=== PATIENT | male | born 1960 | race Caucasian/White ===

== ENCOUNTER 2016-09-23 16:05 | Inpatient (IN) | payer OTHER ==
[2016-09-23] MEDS ORDERED: SODIUM CHLORIDE 0.9% 1,000 ML IV STA (17:31)
[2016-09-23] MEDS ORDERED: HYDROmorphone 1 MG/ML 1 ML SYRINGE IVP STA ×2 (17:31→19:22)
[2016-09-23] MEDS ORDERED: RX INFO: IV CONTRAST WAS GIVEN 1 EACH MISC MISCELLANE PRN ×2 (17:31→18:23)
--- NOTE | 2016-09-23 17:46 | ED ---
General Adult HPI <Bernardo Reyes - Last Filed: 09/23/16 19:35> - General Source: patient, RN notes reviewed Mode of arrival: ambulatory Limitations: no limitations <Tayler Sharp - Last Filed: 09/23/16 19:50> - General Chief complaint: Skin/Abscess/Foreign Body Stated complaint: Abscess on Groin Time Seen by Provider: 09/23/16 17:19 - History of Present Illness Initial comments: 55 yo male presents to the ER with cc of abscess to his bottom area. Patient states that he's noticed pain about 3 days ago. Patient states she noticed some drainage today he went to [facility] and was referred here. Patient denies any fever chills any history of anything like this in the past. Patient denies any falls traumas or injuries. Patient states that he was concerned due to the worsening pains without that he should be evaluated. Patient denies any recent fever, chills, shortness of breath, chest pain, back pain, abdominal pain , nausea vomiting, numbness or tingling, dysuria or hematuria, constipation or diarrhea, headaches or visual changes, or any other current symptoms. (Tayler Sharp) - Related Data Home Medications Medication Instructions Recorded Confirmed Acetaminophen Tab [Tylenol Tab] 325 - 650 mg PO Q6H PRN 09/23/16 09/23/16 Losartan/Hydrochlorothiazide 1 tab PO DAILY 09/23/16 09/23/16 [Losartan-Hctz 100-12.5 mg Tab] Allergies Allergy/AdvReac Type Severity Reaction Status Date / Time No Known Allergies Allergy Verified 09/23/16 17:11 Review of Systems ROS Other: All systems not noted in ROS Statement are negative. <Bernardo Reyes - Last Filed: 09/23/16 19:35> ROS Other: All systems not noted in ROS Statement are negative. <Tayler Sharp - Last Filed: 09/23/16 19:50> ROS Statement: Those systems with pertinent positive or pertinent negative responses have been documented in the HPI. Past Medical History Past Medical History: Hypertension History of Any Multi-Drug Resistant Organisms: None Reported Past Surgical History: Back Surgery, Cholecystectomy Past Psychological History: No Psychological Hx Reported Smoking Status: Current every day smoker Past Alcohol Use History: Occasional Past Drug Use History: None Reported <Tayler Sharp - Last Filed: 09/23/16 19:50> General Exam <Bernardo Reyes - Last Filed: 09/23/16 19:35> Limitations: no limitations <Tayler Sharp - Last Filed: 09/23/16 19:50> - General Exam Comments Initial Comments: General: The patient is awake and alert, in no distress, and does not appear acutely ill. Eye: Pupils are equal, round and reactive to light, extra-ocular movements are intact; there is normal conjunctiva bilaterally. No signs of icterus. Ears, nose, mouth and throat: There are moist mucous membranes and no oral lesions. Neck: The neck is supple, there is no tenderness. Cardiovascular: There is a regular rate and rhythm. No murmur, rub or gallop is appreciated. Respiratory: Lungs are clear to auscultation, respirations are non-labored, breath sounds are equal. No wheezes, stridor, rales, or rhonchi. Gastrointestinal: Soft, non-distended, non-tender abdomen without masses or organomegaly noted. There is no rebound or guarding present. No CVA tenderness. Bowel sounds are unremarkable. Back: There is no tenderness to palpation in the midline. There is no obvious deformity. No rashes noted. Musculoskeletal: Normal ROM, no tenderness, There is no pedal edema. There is no calf tenderness or swelling. Sensation intact. Pulses equal bilaterally 2+. Neurological: CN II-XII intact, There are no obvious motor or sensory deficits. Coordination appears grossly intact. Speech is normal. Skin: Skin is warm and dry. Patient appears to have a large erythematous abscess area in the perineum area that does extend into the rectal area and underneath the scrotum. It is fluctuant to touch Psychiatric: Cooperative, appropriate mood & affect, normal judgment. (Tayler Sharp) Course <Bernardo Reyes - Last Filed: 09/23/16 19:35> <Tayler Sharp - Last Filed: 09/23/16 19:50> Vital Signs 09/23/16 09/23/16 16:21 19:19 Temperature 100.6 F H 99.2 F Pulse Rate 76 78 Respiratory 18 16 Rate Blood Pressure 140/69 132/60 O2 Sat by Pulse 98 98 Oximetry - Reevaluation(s) Reevaluation #1: 09/23/16 19:48 This time patient does meet criteria for sepsis. (Tayler Sharp) Medical Decision Making - Lab Data Result diagrams: 09/23/16 17:55 09/23/16 17:55 <Bernardo Reyes - Last Filed: 09/23/16 19:35> - Lab Data Result diagrams: 09/23/16 17:55 09/23/16 17:55 - Radiology Data Radiology results: report reviewed, image reviewed <Tayler Sharp - Last Filed: 09/23/16 19:50> - Medical Decision Making I examined the patient he has a large perineal abscesses at the base of the scrotum. CAT scan showed a 9 x 4 cm complex mass inferior to the posterior urethra and anterior to the anus consistent with perineum abscess. The patient' s white count 22,000, temperature is 100.5. This been ongoing for 3 days. The patient reports having had a similar smaller abscess 3 years ago it drained spontaneously without any treatment. He does report that he thinks this abscess started to drain and there was approximately 2 cups foul-smelling pus came out while at home. The case discussed with on-call urologist Dr. Kenney. He'll see the patient in emergency room. The patient be kept nothing by mouth at this time and started on IV antibiotics.Dr. Reyes case discussion discussed with Dr. Asencio on-call for the patient's attending. She recommends Zosyn and consultation from infectious disease, Dr. Fitch. (Bernardo Reyes) 55-year-old male presents to the emergency department with chief complaint perineal abscess that does appear to extend into the rectal area. Patient did develop a low-grade fever here. At this time the patient CT and lab work is reviewed. We will admit the patient at this time. Patient was given Unasyn started on Vanco here in the emergency department. After talking to Dr. Asencio she would like us to start Zosyn. We did change the antibiotic to Zosyn for the next round. At this time patient will be admitted. (Tayler Sharp) - Lab Data Lab Results 09/23/16 09/23/16 09/23/16 Range/Units 17:55 17:55 17:55 WBC 22.5 H (3.8-10.6) k/uL RBC 4.77 (4.30-5.90) m/uL Hgb 15.4 (13.0-17.5) gm/dL Hct 44.9 (39.0-53.0) % MCV 94.3 (80.0-100.0) fL MCH 32.3 (25.0-35.0) pg MCHC 34.3 (31.0-37.0) g/dL RDW 13.7 (11.5-15.5) % Plt Count 276 (150-450) k/uL Neutrophils % 85 % Lymphocytes % 6 % Monocytes % 6 % Eosinophils % 1 % Basophils % 0 % Neutrophils # 19.2 H (1.3-7.7) k/uL Lymphocytes # 1.4 (1.0-4.8) k/uL Monocytes # 1.4 H (0-1.0) k/uL Eosinophils # 0.1 (0-0.7) k/uL Basophils # 0.1 (0-0.2) k/uL Sodium 137 (137-145) mmol/L Potassium 3.9 (3.5-5.1) mmol/L Chloride 101 (98-107) mmol/L Carbon Dioxide 23 (22-30) mmol/L Anion Gap 13 mmol/L BUN 9 (9-20) mg/dL Creatinine 0.80 (0.66-1.25) mg/dL Est GFR (MDRD) Af Amer >60 (>60 ml/min/1.73 sqM) Est GFR (MDRD) Non-Af >60 (>60 ml/min/1.73 sqM) Glucose 85 (74-99) mg/dL Plasma Lactic Acid Samuel 1.6 (0.7-2.0) mmol/L Calcium 9.6 (8.4-10.2) mg/dL Total Bilirubin 1.2 (0.2-1.3) mg/dL AST 31 (17-59) U/L ALT 49 (21-72) U/L Alkaline Phosphatase 92 (38-126) U/L Total Protein 7.1 (6.3-8.2) g/dL Albumin 4.4 (3.5-5.0) g/dL Urine Color Urine Appearance (Clear) Urine pH (5.0-8.0) Ur Specific Waterflow (1.001-1.035) Urine Protein (Negative) Urine Glucose (UA) (Negative) Urine Ketones (Negative) Urine Blood (Negative) Urine Nitrite (Negative) Urine Bilirubin (Negative) Urine Urobilinogen (<2.0) mg/dL Ur Leukocyte Esterase (Negative) Urine RBC (0-5) /hpf Urine WBC (0-5) /hpf 09/23/16 Range/Units 18:06 WBC (3.8-10.6) k/uL RBC (4.30-5.90) m/uL Hgb (13.0-17.5) gm/dL Hct (39.0-53.0) % MCV (80.0-100.0) fL MCH (25.0-35.0) pg MCHC (31.0-37.0) g/dL RDW (11.5-15.5) % Plt Count (150-450) k/uL Neutrophils % % Lymphocytes % % Monocytes % % Eosinophils % % Basophils % % Neutrophils # (1.3-7.7) k/uL Lymphocytes # (1.0-4.8) k/uL Monocytes # (0-1.0) k/uL Eosinophils # (0-0.7) k/uL Basophils # (0-0.2) k/uL Sodium (137-145) mmol/L Potassium (3.5-5.1) mmol/L Chloride (98-107) mmol/L Carbon Dioxide (22-30) mmol/L Anion Gap mmol/L BUN (9-20) mg/dL Creatinine (0.66-1.25) mg/dL Est GFR (MDRD) Af Amer (>60 ml/min/1.73 sqM) Est GFR (MDRD) Non-Af (>60 ml/min/1.73 sqM) Glucose (74-99) mg/dL Plasma Lactic Acid Samuel (0.7-2.0) mmol/L Calcium (8.4-10.2) mg/dL Total Bilirubin (0.2-1.3) mg/dL AST (17-59) U/L ALT (21-72) U/L Alkaline Phosphatase (38-126) U/L Total Protein (6.3-8.2) g/dL Albumin (3.5-5.0) g/dL Urine Color Yellow Urine Appearance Clear (Clear) Urine pH 6.5 (5.0-8.0) Ur Specific Waterflow 1.009 (1.001-1.035) Urine Protein Negative (Negative) Urine Glucose (UA) Negative (Negative) Urine Ketones 1+ H (Negative) Urine Blood Trace H (Negative) Urine Nitrite Negative (Negative) Urine Bilirubin Negative (Negative) Urine Urobilinogen 2.0 (<2.0) mg/dL Ur Leukocyte Esterase Negative (Negative) Urine RBC 2 (0-5) /hpf Urine WBC 1 (0-5) /hpf Disposition <Bernardo Reyes - Last Filed: 09/23/16 19:35> Time of Disposition: 19:49 Decision Date: 09/23/16 Decision Time: 19:50 <Tayler Sharp - Last Filed: 09/23/16 19:50> Clinical Impression: Sepsis, Abscess of perineum Disposition: ADMITTED IP TO THIS HOSP Condition: Stable Referrals: Omkar Carmen MD [Primary Care Provider] - 1-2 days
[2016-09-23 18:11] LABS: Basophils # (A) 0.1 k/uL (0-0.2); Basophils % (A) 0 %; CH 32.7; CHCM 34.8; Eosinophils # (A) 0.1 k/uL (0-0.7); Eosinophils % (A) 1 %; HCT 44.9 % (39.0-53.0); HGB 15.4 gm/dL (13.0-17.5); Luc # (Auto) 0.33; Luc % (Auto) 2; Lymphocytes # (A) 1.4 k/uL (1.0-4.8); Lymphocytes % (A) 6 %; MCH 32.3 pg (25.0-35.0); MCHC 34.3 g/dL (31.0-37.0); MCV 94.3 fL (80.0-100.0); Mean Platelet Volume 7.7; Monocytes # (A) 1.4 k/uL (0-1.0); Monocytes % (A) 6 %; Neutrophils # (A) 19.2 k/uL (1.3-7.7); Neutrophils % (A) 85 %; RBC 4.77 m/uL (4.30-5.90); RDW 13.7 % (11.5-15.5); WBC 22.5 k/uL (3.8-10.6); WBC (Perox) 21.41
[2016-09-23 18:19] LABS: ALT 49 U/L (21-72); AST 31 U/L (17-59); Alkaline Phosphatase 92 U/L (38-126); Anion Gap 13 mmol/L; Blood Urea Nitrogen 9 mg/dL (9-20); Calcium 9.6 mg/dL (8.4-10.2); Carbon Dioxide 23 mmol/L (22-30); Chloride 101 mmol/L (98-107); Glucose 85 mg/dL (74-99); Non-African American GFR(MDRD) >60 (>60 ml/min/1.73 sqM); Potassium 3.9 mmol/L (3.5-5.1); Sodium 137 mmol/L (137-145); Total Bilirubin 1.2 mg/dL (0.2-1.3); Total Protein 7.1 g/dL (6.3-8.2)
[2016-09-23 18:21] LABS: Appearance,Urine Clear (Clear); Bilirubin,Urine Negative (Negative); Glucose,Urine (UA) Negative (Negative); Ketones,Urine 1+ (Negative); Leukocyte Esterase,Urine Negative (Negative); Nitrite,Urine Negative (Negative); PH, Urine 6.5 (5.0-8.0); Particle Count 552; Protein,Urine Negative (Negative); RBC,Urine 2 /hpf (0-5); Specific Gravity,Urine 1.009 (1.001-1.035); UA Billing (MACRO vs. MICRO) MICRO; WBC,Urine 1 /hpf (0-5)
--- NOTE | 2016-09-23 19:21 | CT ---
EXAMINATION TYPE: CT abdomen pelvis w con DATE OF EXAM: 09/23/2016 COMPARISON: NONE HISTORY: Pt states of abscess to groin area. CT DLP: 709.1 mGycm Automated exposure control for dose reduction was used. TECHNIQUE: Helical acquisition of images was performed from the lung bases through the pelvis. CONTRAST: Performed without Oral Contrast and with IV Contrast, patient injected with 100 mL of Omnipaque 300. FINDINGS: Lung bases are clear. There is no pleural effusion. Heart size is normal. Liver spleen pancreas appear normal. There are clips from cholecystectomy. Bile ducts are not dilated . There is no adrenal mass. Kidneys show satisfactory contrast opacification. There is no hydronephrosi s. There is a 1 cm cortical cyst on the medial left kidney. Ureters are not dilated. There is no retr operitoneal adenopathy. There is no ascites. Appendix appears normal. I see no intestinal wall thickening. There are no dilat ed loops. I see no bony destructive process. Bladder distends smoothly. There is no pelvic mass. There is no si gn of a hernia. There is no sign of an inguinal mass. There is no sign of a scrotal mass. There is a mixed density mass posterior to the scrotum and anterior to the anus in the subcutaneous tissues. Thi s measures 9 x 4 cm and contains some air and is consistent with an inflammatory mass and abscess. IMPRESSION: THERE IS A 9 X 4 CM COMPLEX MASS INFERIOR TO THE POSTERIOR URETHRA AND ANTERIOR TO THE ANUS CONSISTEN T WITH perineum abscess.
[2016-09-23] MEDS ORDERED: AMPICILLIN-SULBACTAM 3 GM in SODIUM CHLORIDE 0.9% 100 ML IVPB STA (19:22)
[2016-09-23] MEDS ORDERED: IV VANCOMYCIN PER PHARMACY 1 EACH MISC MISCELLANE PRN (19:22)
[2016-09-23] MEDS ORDERED: VANCOMYCIN 1,500 MG in SODIUM CHLORIDE 0.9% 250 ML IVPB STA (19:33)
[2016-09-23] MEDS ORDERED: ONDANSETRON 4 MG/2 ML VIAL IVP PRN (19:45)
[2016-09-23] MEDS ORDERED: NALOXONE 0.4 MG/ML 1 ML VIAL IV PRN (19:45)
[2016-09-23] MEDS ORDERED: ACETAMINOPHEN TAB 325 MG TAB PO PRN (19:47)
[2016-09-23] MEDS: HYDROmorphone 1 MG/ML 1 ML SYRINGE IV PRN (21:17)
--- NOTE | 2016-09-23 21:49 | P.GSCN ---
History of Present Illness Consult date: 09/23/16 Reason for Consult: Perineal abcess History of present illness: The patient is a 55-year-old male admitted through the emergency room for evaluation of a perineal abscess. He says that he first noted swelling anterior to the anus and posterior to the scrotum 3 days ago. He said that he had a similar problem 2 years ago which was felt to be a "boil" that spontaneously drained. Unfortunately this time the swelling worsened and became more uncomfortable. Today the patient noted some nausea as well as a fever and chills. He said that he began spontaneously draining from the perineum and estimates that he had nearly 2 cups of yellowish-bloody fluid that drained. He went to an urgent care clinic where he was initially evaluated and then sent to the emergency room for further evaluation. He was noted to have a temperature of 100.6. White blood count was 22,500. Lactic acid was 1.6. Computed tomography scan of the abdomen and pelvis with IV contrast appeared to show an abscess anterior to the anus and posterior to the scrotum and bulbous urethra. The patient has had no dysuria or difficulty voiding. He has no history of urinary tract infection. He said he last had a bowel movement yesterday. Review of Systems - Constitutional Reports anorexia, Reports chills, Reports fever - Cardiovascular Reports high blood pressure, Denies chest pain, Denies palpitations, Denies shortness of breath - Respiratory Denies cough, Denies wheezing - Gastrointestinal Denies abdominal pain, Denies constipation, Denies vomiting - Genitourinary Reports as per HPI, Denies testicular pain Past Medical History Past Medical History: Hypertension History of Any Multi-Drug Resistant Organisms: None Reported Past Surgical History: Back Surgery, Cholecystectomy Past Psychological History: No Psychological Hx Reported Smoking Status: Current every day smoker (Currently smokes 1 pack per day and has smoked for 40 years. He says that he has quit smoking in the past twice and wants to quit again.) Past Alcohol Use History: Occasional Past Drug Use History: None Reported Medications and Allergies Home Medications Medication Instructions Recorded Confirmed Type Acetaminophen Tab [Tylenol Tab] 325 - 650 mg PO Q6H PRN 09/23/16 09/23/16 History Losartan/Hydrochlorothiazide 1 tab PO DAILY 09/23/16 09/23/16 History [Losartan-Hctz 100-12.5 mg Tab] Allergies Allergy/AdvReac Type Severity Reaction Status Date / Time No Known Allergies Allergy Verified 09/23/16 17:11 Surgical - Exam Vital Signs Temp Pulse Resp BP Pulse Ox 100.6 F H 76 18 140/69 98 09/23/16 16:21 09/23/16 16:21 09/23/16 16:21 09/23/16 16:21 09/23/16 16:21 - General well developed, well nourished, no distress - Eyes no icteric - Neck no no masses, no no lymphadectomy - Respiratory normal expansion, normal respiratory effort - Abdomen Abdomen: non tender, no organomegaly Hernia: none - Genitourinary normal penis with no external lesions, testicles non-tender, other (There is mild scrotal edema. There is no scrotal fluctuance or crepitance. Posterior to the scrotum and anterior to the rectum is a soft tissue mass measuring approximately 2.5 x 3.5 cm in size consistent with an abscess. There appears to be a small area that had drained which is approximately 1 cm from the anus.) - Rectum Rectum: normal sphincter tone Results - Labs 09/23/16 17:55 09/23/16 17:55 Abnormal Lab Results - Last 24 Hours (Table) 09/23/16 09/23/16 Range/Units 17:55 18:06 WBC 22.5 H (3.8-10.6) k/uL Neutrophils # 19.2 H (1.3-7.7) k/uL Monocytes # 1.4 H (0-1.0) k/uL Urine Ketones 1+ H (Negative) Urine Blood Trace H (Negative) Diabetes panel 09/23/16 Range/Units 17:55 Sodium 137 (137-145) mmol/L Potassium 3.9 (3.5-5.1) mmol/L Chloride 101 (98-107) mmol/L Carbon Dioxide 23 (22-30) mmol/L BUN 9 (9-20) mg/dL Creatinine 0.80 (0.66-1.25) mg/dL Glucose 85 (74-99) mg/dL Calcium 9.6 (8.4-10.2) mg/dL AST 31 (17-59) U/L ALT 49 (21-72) U/L Alkaline Phosphatase 92 (38-126) U/L Total Protein 7.1 (6.3-8.2) g/dL Albumin 4.4 (3.5-5.0) g/dL Calcium panel 09/23/16 Range/Units 17:55 Calcium 9.6 (8.4-10.2) mg/dL Albumin 4.4 (3.5-5.0) g/dL Pituitary panel 09/23/16 Range/Units 17:55 Sodium 137 (137-145) mmol/L Potassium 3.9 (3.5-5.1) mmol/L Chloride 101 (98-107) mmol/L Carbon Dioxide 23 (22-30) mmol/L BUN 9 (9-20) mg/dL Creatinine 0.80 (0.66-1.25) mg/dL Glucose 85 (74-99) mg/dL Calcium 9.6 (8.4-10.2) mg/dL Adrenal panel 09/23/16 Range/Units 17:55 Sodium 137 (137-145) mmol/L Potassium 3.9 (3.5-5.1) mmol/L Chloride 101 (98-107) mmol/L Carbon Dioxide 23 (22-30) mmol/L BUN 9 (9-20) mg/dL Creatinine 0.80 (0.66-1.25) mg/dL Glucose 85 (74-99) mg/dL Calcium 9.6 (8.4-10.2) mg/dL Total Bilirubin 1.2 (0.2-1.3) mg/dL AST 31 (17-59) U/L ALT 49 (21-72) U/L Alkaline Phosphatase 92 (38-126) U/L Total Protein 7.1 (6.3-8.2) g/dL Albumin 4.4 (3.5-5.0) g/dL Assessment and Plan (1) Abscess of perineum Narrative/Plan: The patient appears to have a large perineal abscess. It's unclear whether this was a cutaneous abscess that burrowed into the perineal area or a perianal abscess that extended anteriorly. This does not appear to be a scrotal or periurethral abscess. Status: Acute Plan: The patient is currently on Zosyn. It will most likely be necessary to further drain the abscess cavity even though a large amount of fluid has already drained. I believe the general surgical consultation should be obtained due to the possibility that this actually represents a perianal abscess.
[2016-09-23] MEDS: PIPERACILLIN-TAZOBACTAM 3.375 GM in DEXTROSE/WATER 1 50ML.BAG IVPB SCH (22:58)
[2016-09-23] MEDS: SODIUM CHLORIDE 0.9% 1,000 ML IV SCH (22:58)
[2016-09-23] MEDS: HYDROcodone/APAP 5-325MG 1 EACH TAB PO PRN (23:02)
[2016-09-24] MEDS: HYDROmorphone 1 MG/ML 1 ML SYRINGE IV PRN ×6 (03:16→19:51)
[2016-09-24] MEDS: HYDROcodone/APAP 5-325MG 1 EACH TAB PO PRN ×4 (05:29→23:02)
[2016-09-24] MEDS: VANCOMYCIN 1,250 MG in SODIUM CHLORIDE 0.9% 250 ML IVPB SCH ×3 (05:30→22:57)
[2016-09-24] MEDS: SODIUM CHLORIDE 0.9% 1,000 ML IV SCH ×2 (07:09→12:53)
[2016-09-24] MEDS: LOSARTAN 50 MG TAB PO SCH (07:40)
[2016-09-24] MEDS: HYDROCHLOROTHIAZIDE 12.5 MG CAP PO SCH (07:40)
[2016-09-24 07:50] LABS: Basophils # (A) 0.1 k/uL (0-0.2); Basophils % (A) 0 %; CH 32.2; CHCM 34.1; Eosinophils # (A) 0.2 k/uL (0-0.7); Eosinophils % (A) 1 %; HCT 40.2 % (39.0-53.0); HDW 2.65; HGB 13.5 gm/dL (13.0-17.5); Luc # (Auto) 0.32; Luc % (Auto) 2; Lymphocytes # (A) 1.7 k/uL (1.0-4.8); Lymphocytes % (A) 10 %; MCH 31.8 pg (25.0-35.0); MCHC 33.5 g/dL (31.0-37.0); MCV 94.9 fL (80.0-100.0); Mean Platelet Volume 7.7; Monocytes % (A) 6 %; Neutrophils # (A) 13.4 k/uL (1.3-7.7); Neutrophils % (A) 80 %; RBC 4.23 m/uL (4.30-5.90); RDW 13.4 % (11.5-15.5); WBC 16.7 k/uL (3.8-10.6); WBC (Perox) 16.29
[2016-09-24] MEDS: PIPERACILLIN-TAZOBACTAM 3.375 GM in DEXTROSE/WATER 1 50ML.BAG IVPB SCH ×2 (08:03→18:10)
[2016-09-24 08:09] LABS: ALT 47 U/L (21-72); AST 34 U/L (17-59); Alkaline Phosphatase 76 U/L (38-126); Anion Gap 6 mmol/L; Blood Urea Nitrogen 8 mg/dL (9-20); Calcium 8.3 mg/dL (8.4-10.2); Carbon Dioxide 23 mmol/L (22-30); Chloride 108 mmol/L (98-107); Glucose 79 mg/dL (74-99); Non-African American GFR(MDRD) >60 (>60 ml/min/1.73 sqM); Potassium 3.8 mmol/L (3.5-5.1); Sodium 137 mmol/L (137-145); Total Bilirubin 1.3 mg/dL (0.2-1.3); Total Protein 5.3 g/dL (6.3-8.2)
[2016-09-24] MEDS ORDERED: LIDOCAINE 1%-EPI 1:100,000 20 ML VIAL SQ STA (09:41)
[2016-09-24] MEDS ORDERED: LIDOCAINE 2%-EPI 1:100,000 20 ML VIAL SQ STA (09:49)
--- NOTE | 2016-09-24 11:07 | P.OP ---
Date of Procedure: 09/24/16 Preoperative Diagnosis: Perineal abscess Postoperative Diagnosis: Perineal abscess Procedure(s) Performed: Implants: Anesthesia: local Surgeon: Ben Kenney Pathology: none sent Indications for Procedure: Operative Findings: The patient was placed in the dorsal lithotomy position on his hospital bed. The perineal area was prepped with Betadine solution. 6 mL of 1% lidocaine with epinephrine was infiltrated into the midline over the abscess. A 1.5 cm incision was made over the abscess and approximately 30 mL of purulent material drained. A culture was obtained. The abscess cavity was irrigated with normal saline and packed with iodoform. Blood loss was minimal. Patient tolerated procedure well. Description of Procedure:
--- NOTE | 2016-09-24 11:09 | P.PN ---
Progress Note - Text The patient has a low-grade fever of approximately 99. He continues to have discomfort in the perineum with periodic drainage from a tiny opening. White blood count is lower at 17,000. This morning I performed an incision and drainage of the abscess cavity and the abscess cavity will be irrigated periodically with one quarter strength Betadine solution and packed with iodoform. The patient will be continued on his antibiotics. General surgical consultation will be obtained as it's unclear whether this was a perianal abscess or a perineal abscess.
--- NOTE | 2016-09-24 12:56 | P.GSCN ---
History of Present Illness Consult date: 09/24/16 Reason for Consult: Perineal abscess History of present illness: This a 55-year-old male who was admitted to the hospital with a perineal abscess. Patient underwent incision and drainage by Dr. Liu. Patient states he feels better today. He's had the abscess for approximately 3 or 4 days. He states he had a previous abscess bhesania several years ago. Past Medical History Past Medical History: Hypertension History of Any Multi-Drug Resistant Organisms: None Reported Past Surgical History: Back Surgery, Cholecystectomy Past Psychological History: No Psychological Hx Reported Smoking Status: Current every day smoker (Currently smokes 1 pack per day and has smoked for 40 years. He says that he has quit smoking in the past twice and wants to quit again.) Past Alcohol Use History: Occasional Past Drug Use History: None Reported - Past Family History Father Family Medical History: Coronary Artery Disease (CAD), Diabetes Mellitus Additional Family Medical History / Comment(s): dad passed from heart disease, hx of triple bypass. Mother Additional Family Medical History / Comment(s): mom has chrones and ostomy Medications and Allergies Home Medications Medication Instructions Recorded Confirmed Type Acetaminophen Tab [Tylenol Tab] 325 - 650 mg PO Q6H PRN 09/23/16 09/23/16 History Losartan/Hydrochlorothiazide 1 tab PO DAILY 09/23/16 09/23/16 History [Losartan-Hctz 100-12.5 mg Tab] Allergies Allergy/AdvReac Type Severity Reaction Status Date / Time No Known Allergies Allergy Verified 09/23/16 17:11 Surgical - Exam Vital Signs Temp Pulse Resp BP Pulse Ox 100.6 F H 76 18 140/69 98 09/23/16 16:21 09/23/16 16:21 09/23/16 16:21 09/23/16 16:21 09/23/16 16:21 - General well developed, no distress - Eyes PERRL - ENT normal pinna - Respiratory normal expansion - Cardiovascular Rhythm: regular - Abdomen Abdomen: soft, non tender - Genitourinary Once an incision over her perineum. Induration and swelling. Results - Labs 09/24/16 07:29 09/24/16 07:29 Abnormal Lab Results - Last 24 Hours (Table) 09/23/16 09/23/16 09/24/16 Range/Units 17:55 18:06 07:29 WBC 22.5 H 16.7 H (3.8-10.6) k/uL RBC 4.23 L (4.30-5.90) m/uL Neutrophils # 19.2 H 13.4 H (1.3-7.7) k/uL Monocytes # 1.4 H (0-1.0) k/uL Chloride (98-107) mmol/L BUN (9-20) mg/dL Calcium (8.4-10.2) mg/dL Total Protein (6.3-8.2) g/dL Albumin (3.5-5.0) g/dL Urine Ketones 1+ H (Negative) Urine Blood Trace H (Negative) 09/24/16 Range/Units 07:29 WBC (3.8-10.6) k/uL RBC (4.30-5.90) m/uL Neutrophils # (1.3-7.7) k/uL Monocytes # (0-1.0) k/uL Chloride 108 H (98-107) mmol/L BUN 8 L (9-20) mg/dL Calcium 8.3 L (8.4-10.2) mg/dL Total Protein 5.3 L (6.3-8.2) g/dL Albumin 3.0 L (3.5-5.0) g/dL Urine Ketones (Negative) Urine Blood (Negative) Microbiology - Last 24 Hours (Table) 09/23/16 19:50 Gram Stain - Preliminary Groin Wound Culture - Preliminary 09/23/16 18:06 Urine Culture - Preliminary Urine,Voided Diabetes panel 09/23/16 09/24/16 Range/Units 17:55 07:29 Sodium 137 137 (137-145) mmol/L Potassium 3.9 3.8 (3.5-5.1) mmol/L Chloride 101 108 H (98-107) mmol/L Carbon Dioxide 23 23 (22-30) mmol/L BUN 9 8 L (9-20) mg/dL Creatinine 0.80 0.77 (0.66-1.25) mg/dL Glucose 85 79 (74-99) mg/dL Calcium 9.6 8.3 L (8.4-10.2) mg/dL AST 31 34 (17-59) U/L ALT 49 47 (21-72) U/L Alkaline Phosphatase 92 76 (38-126) U/L Total Protein 7.1 5.3 L (6.3-8.2) g/dL Albumin 4.4 3.0 L (3.5-5.0) g/dL Calcium panel 09/23/16 09/24/16 Range/Units 17:55 07:29 Calcium 9.6 8.3 L (8.4-10.2) mg/dL Albumin 4.4 3.0 L (3.5-5.0) g/dL Pituitary panel 09/23/16 09/24/16 Range/Units 17:55 07:29 Sodium 137 137 (137-145) mmol/L Potassium 3.9 3.8 (3.5-5.1) mmol/L Chloride 101 108 H (98-107) mmol/L Carbon Dioxide 23 23 (22-30) mmol/L BUN 9 8 L (9-20) mg/dL Creatinine 0.80 0.77 (0.66-1.25) mg/dL Glucose 85 79 (74-99) mg/dL Calcium 9.6 8.3 L (8.4-10.2) mg/dL Adrenal panel 09/23/16 09/24/16 Range/Units 17:55 07:29 Sodium 137 137 (137-145) mmol/L Potassium 3.9 3.8 (3.5-5.1) mmol/L Chloride 101 108 H (98-107) mmol/L Carbon Dioxide 23 23 (22-30) mmol/L BUN 9 8 L (9-20) mg/dL Creatinine 0.80 0.77 (0.66-1.25) mg/dL Glucose 85 79 (74-99) mg/dL Calcium 9.6 8.3 L (8.4-10.2) mg/dL Total Bilirubin 1.2 1.3 (0.2-1.3) mg/dL AST 31 34 (17-59) U/L ALT 49 47 (21-72) U/L Alkaline Phosphatase 92 76 (38-126) U/L Total Protein 7.1 5.3 L (6.3-8.2) g/dL Albumin 4.4 3.0 L (3.5-5.0) g/dL Assessment and Plan Plan: Perineal abscess. Patient is status post incision and drainage. He received IV antibiotic.
--- NOTE | 2016-09-24 14:26 | P.CONS ---
History of Present Illness - Reason for Consult Consult date: 09/24/16 Medical management Requesting physician: Ben Kenney - Chief Complaint perineal abscess swelling swelling pain abscess - History of Present Illness This is a 55-year-old pleasant gentleman patient of Dr. Domingo Carmen. He has underlying history of hypertension, and tobacco use admitted through emergency room secondary to 3 days swelling pain and discharged on the perineal area, patient has similar episodes 2 years ago however this admission is severely worse as this has continued to drain with increasing swelling and redness, patient noted that he has some fever and chills, and nausea. He was subsequently seen in the emergency room after he stated that this has drained up proximal mid 2 cups of yellowish bloody fluid prior to admission with foul- smelling odor. 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 When he was seen, temperature was 100.6, WBC of 22.5, lactic acid was 1.6, CAT scan of the abdomen and pelvis using IV contrast show abscess anterior to the anus and posterior to the scrotum and bulbous urethra. He denies any prior surgery to this area patient denies any drug resistance organism in the past. Patient was started on IV Zosyn cultures have been sent from the emergency room. Review of Systems Constitutional: Reports as per HPI, Reports chills, Reports fever, Denies anorexia, Denies chronic headaches, Denies chronic pain, Denies daytime sleepiness, Denies fatigue, Denies lethargy, Denies malaise, Denies night sweats , Denies poor appetite, Denies sweats, Denies weakness, Denies weight gain, Denies weight loss Ears, nose, mouth and throat: Reports as per HPI, Denies ant. neck pain, Denies bleeding gums, Denies dental pain, Denies dysphagia, Denies epistaxis, Denies headache, Denies hoarseness, Denies mouth pain, Denies nasal congestion, Denies nasal discharge, Denies neck fullness/pressure, Denies neck lump, Denies nose pain, Denies odynophagia, Denies post-nasal drip, Denies sinus pain, Denies sinus pressure, Denies swelling in mouth, Denies swelling in throat, Denies sore throat, Denies vertigo, Denies voice changes Cardiovascular: Reports as per HPI, Denies chest pain, Denies claudication, Denies decreased exercise tolerance, Denies dyspnea on exertion, Denies edema, Denies high blood pressure, Denies irregular heart beat, Denies leg edema, Denies lightheadedness, Denies orthopnea, Denies palpitations, Denies paroxysmal nocturnal dyspnea, Denies phlebitis, Denies rapid heart beat, Denies shortness of breath, Denies syncope Respiratory: Reports as per HPI, Denies congestion, Denies cough, Denies cough with sputum, Denies dyspnea, Denies excessive sputum, Denies hemoptysis, Denies home oxygen, Denies pain, Denies pain on inspiration, Denies pleurisy, Denies respiratory infections, Denies sleep apnea, Denies snoring, Denies wheezing Gastrointestinal: Reports as per HPI, Denies abdominal pain, Denies belching, Denies bloating, Denies BRBPR, Denies change in bowel habits, Denies coffee ground emesis, Denies constipation, Denies diarrhea, Denies dyspepsia, Denies early satiety, Denies excessive gas, Denies heartburn, Denies hematemesis, Denies hematochezia, Denies indigestion, Denies jaundice, Denies lactose intolerance, Denies loss of appetite, Denies melena, Denies nausea, Denies vomiting Genitourinary: Reports as per HPI, Denies decreased libido, Denies difficulties fathering child, Denies discharge, Denies dysuria, Denies erectile dysfunction, Denies flank pain, Denies genital pain, Denies genital sores, Denies hematuria, Denies impotence, Denies incontinence, Denies kidney stones, Denies nocturia, Denies polyuria, Denies testicular lump, Denies testicular pain, Denies urinary frequency, Denies urinary hesitancy, Denies urinary retention Musculoskeletal: Reports as per HPI, Denies arm numbness/tingling, Denies atrophy, Denies fractures, Denies frequent falls, Denies gait dysfunction, Denies hot joints, Denies leg numbness/tingling, Denies limitation of motion, Denies loss of height, Denies low back pain, Denies morning stiffness, Denies muscle cramps, Denies muscle weakness, Denies myalgias, Denies neck pain, Denies neck stiffness, Denies prior amputations, Denies redness of joints, Denies shooting arm pain, Denies shooting leg pain Integumentary: Reports as per HPI, Denies acne, Denies boils, Denies brittle nails, Denies change in hair/nails, Denies color changes, Denies darkening of skin, Denies depigmentation, Denies dryness, Denies foot/leg ulcers, Denies growths, Denies hirsutism, Denies lesions, Denies onychomycosis, Denies pruritus , Denies rash, Denies sores, Denies striae, Denies unusual bruising, Denies wounds Neurological: Reports as per HPI, Denies aphasia, Denies ataxia, Denies balance difficulties, Denies burning pain, Denies change in mentation, Denies change in smell/taste, Denies change in speech, Denies confusion, Denies convulsions, Denies double vision, Denies gait dysfunction, Denies head injury, Denies headaches, Denies hearing difficulties, Denies lack of coordination, Denies loss of vision, Denies memory loss, Denies migraines, Denies motor disturbance, Denies numbness, Denies paralysis, Denies paresthesias, Denies seizures, Denies sensory deficit, Denies spasticity, Denies syncope, Denies tic, Denies tingling , Denies transient paralysis, Denies tremors, Denies vertigo, Denies weakness, Denies visual changes Psychiatric: Reports as per HPI, Denies anhedonia, Denies anxiety, Denies anxiety attacks, Denies change in appetite, Denies change in libido, Denies change in sleep habits, Denies confusion, Denies depression, Denies difficulty concentrating, Denies disorientation, Denies hallucinations, Denies hopelessness , Denies hypersomnia, Denies insomnia, Denies irritability, Denies memory loss, Denies mood swings, Denies paranoia, Denies sadness/tearfulness, Denies sleep disturbances, Denies suicidal ideation Endocrine: Reports as per HPI, Denies cold intolerance, Denies deepening of the voice, Denies excessive sweating, Denies excessive thirst, Denies fatigue, Denies flushing, Denies heat intolerance, Denies high blood sugars, Denies increase in ring/shoe/hat size, Denies low blood sugars, Denies nocturia, Denies palpitations, Denies polydipsia, Denies polyphagia, Denies polyuria, Denies proptosis, Denies recent glucocorticoid use, Denies thyroid mass, Denies weight change Hematologic/Lymphatic: Reports as per HPI, Denies easy bleeding, Denies easy bruising, Denies lymphadenopathy, Denies lymphedema, Denies thrombophilia Allergic/Immunologic: Reports as per HPI, Denies allergic rhinitis, Denies anaphylaxis, Denies angioedema, Denies gluten intolerance, Denies persistent infections, Denies seasonal allergies, Denies urticaria, Denies wheezing Past Medical History Past Medical History: Hypertension History of Any Multi-Drug Resistant Organisms: None Reported Past Surgical History: Back Surgery (Laminectomy), Cholecystectomy Past Psychological History: No Psychological Hx Reported Smoking Status: Current every day smoker (Currently smokes 1 pack per day and has smoked for 40 years. He says that he has quit smoking in the past twice and wants to quit again.) Past Alcohol Use History: Occasional Past Drug Use History: None Reported - Past Family History Father Family Medical History: Coronary Artery Disease (CAD), Diabetes Mellitus Additional Family Medical History / Comment(s): dad passed from heart disease, hx of triple bypass. Mother History Unknown: Yes (Crohn's disease) Additional Family Medical History / Comment(s): mom has chrones and ostomy Brother(s) Family Medical History: No Reported History Sister(s) Family Medical History: No Reported History Son(s) History Unknown: Yes (CMT with muscle dystrophy) Family Medical History: No Reported History Daughter(s) Family Medical History: No Reported History Medications and Allergies Home Medications Medication Instructions Recorded Confirmed Type Acetaminophen Tab [Tylenol Tab] 325 - 650 mg PO Q6H PRN 09/23/16 09/23/16 History Losartan/Hydrochlorothiazide 1 tab PO DAILY 09/23/16 09/23/16 History [Losartan-Hctz 100-12.5 mg Tab] Allergies Allergy/AdvReac Type Severity Reaction Status Date / Time No Known Allergies Allergy Verified 09/23/16 17:11 Physical Exam Vitals: Vital Signs Temp Pulse Pulse Resp BP BP Pulse Ox 09/24/16 08:00 77 20 09/24/16 07:00 97.8 F 57 L 16 102/66 95 07/22/17 00:01 98.4 F 77 20 129/65 97 09/24/16 00:00 77 20 09/23/16 20:36 99.2 F 84 16 154/66 98 09/23/16 19:19 99.2 F 78 16 132/60 98 09/23/16 16:21 100.6 F H 76 18 140/69 98 Intake and Output 09/23/16 09/24/16 09/24/16 22:59 06:59 14:59 Intake Total 750 1010 Balance 750 1010 Intake: Intake, IV Titration 750 1010 Amount Piperacillin-Tazobactam 3 50 .375 gm In Dextrose/Water 1 50ml.bag @ 12.5 mls/hr IVPB Q8HR MARK Rx#: [id number] Sodium Chloride 0.9% 1, 500 960 000 ml @ 120 mls/hr IV . Q8H20M MARK Rx#:[id number] Vancomycin 1,250 mg In 250 Sodium Chloride 0.9% 250 ml @ 125 mls/hr IVPB Q8H MARK Rx#:[id number] Other: Voiding Method Toilet Toilet Weight 83.915 kg 83.915 kg Patient Weight 09/25/16 06:59 Weight 83.915 kg - Constitutional General appearance: cooperative, no acute distress - EENT Eyes: anicteric sclerae, EOMI, dentition normal, normal appearance ENT: NA/AT - Neck Neck: normal ROM - Respiratory Respiratory: bilateral: CTA, negative: diminished, dullness, rales, rhonchi - Cardiovascular Rhythm: regular Heart sounds: normal: S1, S2 Abnormal Heart Sounds: no systolic murmur, no diastolic murmur, no rub, no S3 Gallop, no S4 Gallop, no click, no other - Gastrointestinal General gastrointestinal: normal bowel sounds, soft - Genitourinary perineum. Shows significant swelling measuring approximately 8 cm x 5 cm with central incision from an IND that was performed, packing is out Male genitourinary: left inguinal lymphadenopathy - Integumentary Integumentary: normal, normal turgor - Musculoskeletal Musculoskeletal: gait normal, strength equal bilaterally - Psychiatric Psychiatric: A&O x's 3, appropriate affect, intact judgment & insight Results CBC & Chem 7: 09/25/16 05:07 09/25/16 05:07 Labs: Abnormal Lab Results - Last 24 Hours (Table) 09/23/16 09/23/16 09/24/16 Range/Units 17:55 18:06 07:29 WBC 22.5 H 16.7 H (3.8-10.6) k/uL RBC 4.23 L (4.30-5.90) m/uL Neutrophils # 19.2 H 13.4 H (1.3-7.7) k/uL Monocytes # 1.4 H (0-1.0) k/uL Chloride (98-107) mmol/L BUN (9-20) mg/dL Calcium (8.4-10.2) mg/dL Total Protein (6.3-8.2) g/dL Albumin (3.5-5.0) g/dL Urine Ketones 1+ H (Negative) Urine Blood Trace H (Negative) 09/24/16 Range/Units 07:29 WBC (3.8-10.6) k/uL RBC (4.30-5.90) m/uL Neutrophils # (1.3-7.7) k/uL Monocytes # (0-1.0) k/uL Chloride 108 H (98-107) mmol/L BUN 8 L (9-20) mg/dL Calcium 8.3 L (8.4-10.2) mg/dL Total Protein 5.3 L (6.3-8.2) g/dL Albumin 3.0 L (3.5-5.0) g/dL Urine Ketones (Negative) Urine Blood (Negative) Microbiology - Last 24 Hours (Table) 09/23/16 19:50 Gram Stain - Preliminary Groin Wound Culture - Preliminary 09/23/16 18:06 Urine Culture - Preliminary Urine,Voided Laboratory Results WBC 16.7 k/uL (3.8-10.6) H 09/24/16 07:29 RBC 4.23 m/uL (4.30-5.90) L 09/24/16 07:29 Hgb 13.5 gm/dL (13.0-17.5) 09/24/16 07:29 Hct 40.2 % (39.0-53.0) 09/24/16 07:29 MCV 94.9 fL (80.0-100.0) 09/24/16 07: MCH 31.8 pg (25.0-35.0) 09/24/16 07: MCHC 33.5 g/dL (31.0-37.0) 09/24/16 07: RDW 13.4 % (11.5-15.5) 09/24/16 07:29 Plt Count 247 k/uL (150-450) 09/24/16 07: Neutrophils % 80 % 09/24/16 07: Lymphocytes % 10 % 09/24/16 07:29 Monocytes % 6 % 09/24/16 07: Eosinophils % 1 % 09/24/16 07: Basophils % 0 % 09/24/16 07: Neutrophils # 13.4 k/uL (1.3-7.7) H 09/24/16 07:29 Lymphocytes # 1.7 k/uL (1.0-4.8) 09/24/16 07: Monocytes # 1.0 k/uL (0-1.0) 09/24/16 07: Eosinophils # 0.2 k/uL (0-0.7) 09/24/16 07:29 Basophils # 0.1 k/uL (0-0.2) 09/24/16 07:29 Sodium 137 mmol/L (137-145) 09/24/16 07:29 Potassium 3.8 mmol/L (3.5-5.1) 09/24/16 07: Chloride 108 mmol/L (98-107) H 09/24/16 07:29 Carbon Dioxide 23 mmol/L (22-30) 09/24/16 07:29 Anion Gap 6 mmol/L 09/24/16 07:29 BUN 8 mg/dL (9-20) L 09/24/16 07:29 Creatinine 0.77 mg/dL (0.66-1.25) 09/24/16 07:29 Est GFR (MDRD) Af Amer >60 (>60 ml/min/1.73 sqM) 09/24/16 07:29 Est GFR (MDRD) Non-Af >60 (>60 ml/min/1.73 sqM) 09/24/16 07:29 Glucose 79 mg/dL (74-99) 09/24/16 07:29 Plasma Lactic Acid Samuel 1.6 mmol/L (0.7-2.0) 09/23/16 17:55 Calcium 8.3 mg/dL (8.4-10.2) L 09/24/16 07:29 Total Bilirubin 1.3 mg/dL (0.2-1.3) 09/24/16 07:29 AST 34 U/L (17-59) 09/24/16 07:29 ALT 47 U/L (21-72) 09/24/16 07:29 Alkaline Phosphatase 76 U/L (38-126) 09/24/16 07:29 Total Protein 5.3 g/dL (6.3-8.2) L 09/24/16 07:29 Albumin 3.0 g/dL (3.5-5.0) L 09/24/16 07:29 Urine Color Yellow 09/23/16 18:06 Urine Appearance Clear (Clear) 09/23/16 18:06 Urine pH 6.5 (5.0-8.0) 09/23/16 18:06 Ur Specific [place] 1.009 (1.001-1.035) 09/23/16 18:06 Urine Protein Negative (Negative) 09/23/16 18:06 Urine Glucose (UA) Negative (Negative) 09/23/16 18:06 Urine Ketones 1+ (Negative) H 09/23/16 18:06 Urine Blood Trace (Negative) H 09/23/16 18:06 Urine Nitrite Negative (Negative) 09/23/16 18:06 Urine Bilirubin Negative (Negative) 09/23/16 18:06 Urine Urobilinogen 2.0 mg/dL (<2.0) 09/23/16 18:06 Ur Leukocyte Esterase Negative (Negative) 09/23/16 18:06 Urine RBC 2 /hpf (0-5) 09/23/16 18:06 Urine WBC 1 /hpf (0-5) 09/23/16 18:06 Microbiology 09/23/16 19:50 Groin Gram Stain - Preliminary 09/23/16 19:50 Groin Wound Culture - Preliminary 09/23/16 18:06 Urine,Voided Urine Culture - Preliminary Assessment and Plan Plan: 1. Perineal abscess with no prior history off drug resistance or Crohn's disease, I&D performed on 09/23/2016 currently receiving IV antibiotics Zosyn, concerning for anorectal-cutaneous fistula cannot be ruled out, patient has similar problems in the past however this has been dormant for the past 2 years. Consult was made with Dr. Key infectious disease and Dr. Elias for general surgery, vancomycin added to Zosyn 2. Sepsis with SIRS secondary to the above abscess, patient's on IV antibiotics , protect hemodynamics with IV fluids, monitor for leukocytosis 3. Hypertension currently stable and hydrated diarrheal and Cozaar, 4. Tobacco use, patient is not interested at nicotine patches at this time 5. Mild protein malnutrition preferentially a high protein intake was adviced 6. Family history off Crohn's disease on the mother patient was informed regarding workup also for other inflammatory bowel diseases DVT prophylaxis GI prophylaxis
[2016-09-24] MEDS: ENOXAPARIN 40 MG/0.4 ML SYRINGE SQ SCH (18:10)
[2016-09-24] MEDS: FAMOTIDINE 20 MG TAB PO SCH (19:56)
[2016-09-25] MEDS: PIPERACILLIN-TAZOBACTAM 3.375 GM in DEXTROSE/WATER 1 50ML.BAG IVPB SCH ×4 (01:22→23:06)
[2016-09-25] MEDS ORDERED: VANCOMYCIN TROUGH DUE 1 EACH MISC MISCELLANE ONE (05:00)
[2016-09-25] MEDS: VANCOMYCIN 1,250 MG in SODIUM CHLORIDE 0.9% 250 ML IVPB SCH ×3 (05:20→21:26)
[2016-09-25 05:33] LABS: Basophils % (A) 1 %; CH 31.5; CHCM 33.8; Eosinophils # (A) 0.3 k/uL (0-0.7); Eosinophils % (A) 4 %; HCT 39.5 % (39.0-53.0); HDW 2.77; HGB 13.5 gm/dL (13.0-17.5); Luc # (Auto) 0.29; Luc % (Auto) 4; Lymphocytes # (A) 1.7 k/uL (1.0-4.8); Lymphocytes % (A) 20 %; MCH 32.1 pg (25.0-35.0); MCHC 34.3 g/dL (31.0-37.0); MCV 93.8 fL (80.0-100.0); Mean Platelet Volume 7.3; Monocytes # (A) 0.7 k/uL (0-1.0); Monocytes % (A) 8 %; Neutrophils # (A) 5.4 k/uL (1.3-7.7); Neutrophils % (A) 64 %; RBC 4.21 m/uL (4.30-5.90); RDW 13.2 % (11.5-15.5); WBC 8.4 k/uL (3.8-10.6); WBC (Perox) 8.84
[2016-09-25 05:50] LABS: Anion Gap 6 mmol/L; Blood Urea Nitrogen 7 mg/dL (9-20); Calcium 8.8 mg/dL (8.4-10.2); Carbon Dioxide 28 mmol/L (22-30); Chloride 105 mmol/L (98-107); Glucose 92 mg/dL (74-99); Non-African American GFR(MDRD) >60 (>60 ml/min/1.73 sqM); Potassium 4.3 mmol/L (3.5-5.1); Sodium 139 mmol/L (137-145)
--- NOTE | 2016-09-25 07:28 | P.PN ---
Progress Note - Text The patient is afebrile and says that he feels better since his perineal abscess has been drained. He is tolerating regular diet and ambulatory. He is having no difficulty voiding and is having bowel movements normally. White blood count today has fallen to 8400. Preliminary blood cultures are growing gram-positive cocci. Urine culture is no growth Physical exam: There is less edema of the scrotum then there was yesterday. The remains induration in the perineum surrounding the incision and drainage opening. A small amount of purulent drainage continues to come from the abscess cavity. There is no skin necrosis or crepitance. Impression: Perineal abscess-post incision and drainage. The patient appears to have some bacteremia related to the action but has improved markedly clinically since the abscess was drained. Plan: The patient will be continued on his current antibiotics pending final blood culture. His wound will be irrigated with quarters strength Betadine periodically and repacked with iodoform.
[2016-09-25] MEDS: HYDROCHLOROTHIAZIDE 12.5 MG CAP PO SCH (07:35)
[2016-09-25] MEDS: ENOXAPARIN 40 MG/0.4 ML SYRINGE SQ SCH (07:35)
[2016-09-25] MEDS: FAMOTIDINE 20 MG TAB PO SCH ×2 (07:36→20:35)
[2016-09-25] MEDS: HYDROmorphone 1 MG/ML 1 ML SYRINGE IV PRN ×2 (07:38→11:04)
[2016-09-25] MEDS: SODIUM CHLORIDE 0.9% 1,000 ML IV SCH ×3 (08:08→15:09)
[2016-09-25] MEDS: LOSARTAN 50 MG TAB PO SCH ×2 (08:10→09:08)
--- NOTE | 2016-09-25 10:21 | P.PN ---
Progress Note - Text The patient states he feels better. He has less swelling and pain at his perineum. On exam is lesser stable. His abdomen soft. There is decreased cellulitis and inflammation of his perineal area. Status post incision and drainage of a perineal abscess. Patient will continue receive local wound care. The patient may shower.
--- NOTE | 2016-09-25 13:12 | CONS ---
DATE OF SERVICE: 09/24/2016 REASON FOR CONSULTATION: Perirectal abscess. INTERVAL HISTORY: The patient is a 55-year-old male who presented to the ER at [facility] with pain as well as swelling in the perineal area. Apparently the patient did have a similar episode years ago that did require drainage, however, no problem since then. The patient noticed the area to be swollen and painful intensity of 5-6/10 and No radiation. No significant drainage from it. With pain, especially on sitting down and fever, he presented to the ER. The patient has been watched by the ER physician. Noted to have fever of 100.7 with elevated white count . Patient does have significant abdominal pain posterior scrotal and perirectal. Patient subsequently has been evaluated by urology and did have drainage of the abscess with clear material expressed. The patient was started on Zosyn and vanco and he was consulted for further recommendation regarding the current therapy. REVIEW OF SYSTEMS: CONSTITUTIONAL: Positive for weakness and low grade fever. RESPIRATORY: No complaint. CARDIOVASCULAR: No complaint. GENITOURINARY: As per HPI. MUSCULOSKELETAL: No complaint. NEUROLOGIC: No complaint. PAST MEDICAL HISTORY: Hypertension, perineal abscess. PAST SURGICAL HISTORY: Laminectomy and cholecystectomy. SOCIAL HISTORY: The patient is currently a smoker, smokes about a pack a day. Occasional alcohol. No drug use. FAMILY HISTORY: Father history of diabetes and coronary artery disease. Mother history of Crohn's disease. ALLERGIES: No known drug allergies. MEDICATIONS: 1. Tylenol. 2. [place]. 3. Lovenox. 4. Pepcid. 5. Hydrochlorothiazide. 6. Dilaudid. 7. Cozaar. 9. Bactrim. 10. Vancomycin. On examination blood pressure 119/56 with pulse of 68, temperature 98. He is 95 % on room air. GENERAL DESCRIPTION: The patient is a middle-aged male lying in bed in no distress. No pharyngeal erythema HEENT: Shows no pallor or scleral icterus. Oral mucous membranes are dry. NECK: Trachea central. No thyromegaly. LUNGS: Unlabored breathing. Clear to auscultation anteriorly. No wheezes or crackles. HEART: S1/S2, regular rate and rhythm. ABDOMEN: Soft, no tenderness, no rigidity. Examination of the perirectal area shows a small indurated area that seems to have been incised. No purulent drainage was noticed. Some surrounding redness. EXTREMITIES: no edema feet NEUROLOGIC: Patient is awake, alert x3 ,mood and affect normal LABS: Hemoglobin 13.5, white count 16.7, admission white count was 22.5. BUN 8 , creatinine 0.80. Urine is negative. Wound culture has been obtained, currently pending. DIAGNOSTIC IMPRESSION: Admitted patient with perineal abscess status post drainage by urology. Culture has been gram positive cocci and gram positive bacilli with a close proximity to underlying to gram negative infection needs to be ruled out though gram positive likely in patient known to have recurrent perineal abscess and mother with history of Crohn's disease. The patient will benefit from further workup including to rule out inflammatory bowel disease to be the source of these recurrent perirectal abscesses. PLAN: 1. Patient will continue on Zosyn and vancomycin at this point. 2. Will follow the cultures and further adjust medication if needed. Thank you for this consultation. I will follow the patient along with you. YUNIEL
--- NOTE | 2016-09-25 14:24 | P.PN ---
Subjective Principal diagnosis: perineal abscess swelling swelling pain abscess This is a 55-year-old pleasant gentleman patient of Dr. Domingo Carmen. He has underlying history of hypertension, and tobacco use admitted through emergency room secondary to 3 days swelling pain and discharged on the perineal area, patient has similar episodes 2 years ago however this admission is severely worse as this has continued to drain with increasing swelling and redness, patient noted that he has some fever and chills, and nausea. He was subsequently seen in the emergency room after he stated that this has drained up proximal mid 2 cups of yellowish bloody fluid prior to admission with foul- smelling odor. 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 When he was seen, temperature was 100.6, WBC of 22.5, lactic acid was 1.6, CAT scan of the abdomen and pelvis using IV contrast show abscess anterior to the anus and posterior to the scrotum and bulbous urethra. He denies any prior surgery to this area patient denies any drug resistance organism in the past. Patient was started on IV Zosyn cultures have been sent from the emergency room. 09/25: Patient is significant better, patient's blood cultures growing coag- negative staph, other cultures are currently pending, patient remains to be afebrile, leukocytosis has improved, she has normal bowel movements and no fecaloid material from urine Objective - Vital Signs Vital signs: Vital Signs Temp 97.9 F 09/25/16 13:45 Pulse 68 09/25/16 13:45 Resp 16 09/25/16 13:45 BP 123/68 09/25/16 13:45 Pulse Ox 97 09/25/16 13:45 Intake & Output 09/24/16 09/25/16 09/25/16 18:59 06:59 18:59 Intake Total 1800 600 Balance 1800 600 Weight 83.915 kg Intake: Intake, IV Titration 1300 Amount Ampicillin-Sulbactam 3 gm 100 In Sodium Chloride 0.9% 100 ml @ 100 mls/hr IVPB ONCE [facility] Rx#:[id number] Piperacillin-Tazobactam 3 50 .375 gm In Dextrose/Water 1 50ml.bag @ 12.5 mls/hr IVPB Q8HR [facility] Rx#: [id number] Sodium Chloride 0.9% 1, 900 000 ml @ 120 mls/hr IV . Q8H20M [facility] Rx#:[id number] Vancomycin 1,250 mg In 250 Sodium Chloride 0.9% 250 ml @ 125 mls/hr IVPB Q8H [facility] Rx#:[id number] Oral 500 600 Other: Voiding Method Toilet Toilet Toilet # Voids 3 1 - Constitutional General appearance: Present: average body habitus, cooperative, no acute distress - EENT Eyes: Present: anicteric sclerae, EOMI, PERRLA, dentition normal, normal appearance ENT: Present: hearing grossly normal, NA/AT, normal oropharynx - Neck Neck: Present: normal ROM - Respiratory Respiratory: bilateral: CTA, negative: diminished, dullness, rales - Cardiovascular Heart sounds: normal: S1, S2 Abnormal Heart Sounds: Absent: systolic murmur, diastolic murmur, rub, S3 Gallop , S4 Gallop, click, other - Gastrointestinal General gastrointestinal: Present: normal bowel sounds, soft - Integumentary Integumentary: Present: normal, normal turgor - Neurologic Neurologic: Present: CNII-XII intact - Musculoskeletal Musculoskeletal: Present: gait normal, strength equal bilaterally - Psychiatric Psychiatric: Present: A&O x's 3, appropriate affect, intact judgment & insight - Labs CBC & Chem 7: 09/25/16 05:07 09/25/16 05:07 Labs: Abnormal Lab Results - Last 24 Hours (Table) 09/25/16 09/25/16 Range/Units 05:07 05:07 RBC 4.21 L (4.30-5.90) m/uL BUN 7 L (9-20) mg/dL Microbiology - Last 24 Hours (Table) 09/24/16 11:10 Gram Stain - Preliminary Perineal Fluid Wound Culture - Preliminary 09/23/16 17:55 Blood Culture Gram Stain - Preliminary Blood Blood Culture - Preliminary Coagulase Negative Staph 09/23/16 18:06 Urine Culture - Final Urine,Voided 09/24/16 11:10 Anaerobic Culture - Preliminary Perineal Fluid 09/23/16 17:55 Blood Culture - Final Blood Assessment and Plan Plan: 1. Perineal abscess with no prior history of drug resistance or Crohn's disease , I&D performed on 09/23/2016 currently receiving IV antibiotics Zosyn, concerning for anorectal-cutaneous fistula cannot be ruled out, patient has similar problems in the past however this has been dormant for the past 2 years. Consult was made with Dr. Key infectious disease and Dr. Elias for general surgery, vancomycin added to Zosyn 2. Sepsis with SIRS secondary to the above abscess, patient's on IV antibiotics , protect hemodynamics with IV fluids, monitor for leukocytosis 3. Hypertension currently stable and hydrated diarrheal and Cozaar, 4. Tobacco use, patient is not interested at nicotine patches at this time 5. Mild protein malnutrition preferentially a high protein intake was adviced 6. Family history off Crohn's disease on the mother patient was informed regarding workup also for other inflammatory bowel diseases 7. Bacteremia Coag-negative gram-positive organism, most likely contamination, await formal cultures. If blood cultures are requested continue Zosyn and vancomycin consult with Dr. Key DVT prophylaxis GI prophylaxis
[2016-09-25] MEDS: HYDROcodone/APAP 5-325MG 1 EACH TAB PO PRN ×2 (16:23→23:06)
[2016-09-26] MEDS: SODIUM CHLORIDE 0.9% 1,000 ML IV SCH ×3 (01:19→15:34)
[2016-09-26] MEDS: PIPERACILLIN-TAZOBACTAM 3.375 GM in DEXTROSE/WATER 1 50ML.BAG IVPB SCH ×2 (07:20→15:45)
[2016-09-26] MEDS: ENOXAPARIN 40 MG/0.4 ML SYRINGE SQ SCH (07:22)
[2016-09-26] MEDS: HYDROCHLOROTHIAZIDE 12.5 MG CAP PO SCH (07:23)
[2016-09-26] MEDS: LOSARTAN 50 MG TAB PO SCH (07:23)
[2016-09-26] MEDS: FAMOTIDINE 20 MG TAB PO SCH ×2 (07:23→20:05)
[2016-09-26 08:09] LABS: Basophils % (A) 0 %; CHCM 33.8; Eosinophils # (A) 0.4 k/uL (0-0.7); Eosinophils % (A) 5 %; HCT 40.9 % (39.0-53.0); HDW 2.71; HGB 13.8 gm/dL (13.0-17.5); Luc % (Auto) 3; Lymphocytes # (A) 1.5 k/uL (1.0-4.8); Lymphocytes % (A) 20 %; MCHC 33.7 g/dL (31.0-37.0); MCV 95.1 fL (80.0-100.0); Mean Platelet Volume 7.8; Monocytes # (A) 0.6 k/uL (0-1.0); Monocytes % (A) 8 %; Neutrophils # (A) 4.9 k/uL (1.3-7.7); Neutrophils % (A) 64 %; RBC 4.31 m/uL (4.30-5.90); RDW 13.9 % (11.5-15.5); WBC 7.6 k/uL (3.8-10.6); WBC (Perox) 7.83
[2016-09-26 08:16] LABS: Anion Gap 9 mmol/L; Blood Urea Nitrogen 5 mg/dL (9-20); Calcium 8.7 mg/dL (8.4-10.2); Carbon Dioxide 24 mmol/L (22-30); Chloride 107 mmol/L (98-107); Glucose 79 mg/dL (74-99); Non-African American GFR(MDRD) >60 (>60 ml/min/1.73 sqM); Potassium 4.3 mmol/L (3.5-5.1); Sodium 140 mmol/L (137-145)
[2016-09-26] MEDS: HYDROmorphone 1 MG/ML 1 ML SYRINGE IV PRN ×2 (09:35→15:53)
[2016-09-26 10:03] LABS: Hemoglobin A1C 5.3 % (4.2-6.1)
--- NOTE | 2016-09-26 12:27 | P.PN ---
Progress Note - Text The patient is afebrile. He says his perineal pain is decreased in the amount of drainage from the abscess site has lessened. Final blood culture grew staph epidermidis. White blood count today is 7400. Physical exam: There is less induration in the perineum. Iodoform packing continues. Minimal scrotal edema. Impression: Perineal abscess-most likely from staph bacteria. Recommendation: From my standpoint the patient could be discharged. His will be instructed in dressing changes. It's unclear whether the patient will need to be on an IV antibiotic or whether an oral antibiotic will be adequate.
--- NOTE | 2016-09-26 12:59 | PN ---
DATE OF SERVICE: 09/25/16 REASON FOR FOLLOW UP: 1. Perianal abscess. 2. Positive blood culture. INTERVAL HISTORY: The patient is afebrile. He is breathing comfortably. Pain in the perianal area is currently controlled. There is ( ) drainage from it. The patient denies significant chest pain or shortness of breath, cough, abdominal pain or any diarrhea. On examination, blood pressure 123/69, pulse 68, temperature 97.9, he is 97% on room air. General description revealed a middle aged male, lying in bed in no distress. Respiratory: Unlabored breathing. Clear to auscultation anteriorly. Heart: S1, S2 regular rate and rhythm. Abdomen soft, no tenderness. perianal wound is currently dressed up. No obvious drainage thru the dressing. Labs: Hemoglobin 13.5, white count 8.4 with a BUN 7, creatinine 0.80. DIAGNOSTIC IMPRESSION AND PLAN: Patient with perianal abscess status post drainage. Cultures are currently pending. The patient also has positive blood culture possible Staph likely skin contamination. The patient to continue Zosyn. Discontinue the Vancomycin. Discharge antibiotic depending on the culture report. Continue supportive care. MTDD
--- NOTE | 2016-09-26 13:40 | P.PN ---
Subjective This is a 55-year-old pleasant gentleman patient of Dr. Domingo Carmen. He has underlying history of hypertension, and tobacco use admitted through emergency room secondary to 3 days swelling pain and discharged on the perineal area, patient has similar episodes 2 years ago however this admission is severely worse as this has continued to drain with increasing swelling and redness, patient noted that he has some fever and chills, and nausea. He was subsequently seen in the emergency room after he stated that this has drained up proximal mid 2 cups of yellowish bloody fluid prior to admission with foul- smelling odor. 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 When he was seen, temperature was 100.6, WBC of 22.5, lactic acid was 1.6, CAT scan of the abdomen and pelvis using IV contrast show abscess anterior to the anus and posterior to the scrotum and bulbous urethra. He denies any prior surgery to this area patient denies any drug resistance organism in the past. Patient was started on IV Zosyn cultures have been sent from the emergency room. 09/25: Patient is significant better, patient's blood cultures growing coag- negative staph, other cultures are currently pending, patient remains to be afebrile, leukocytosis has improved, she has normal bowel movements and no fecaloid material from urine 09/26: Patient states he continues to have a hard area at the site of the abscess but nothing can be expressed from the site. He is status post I&D done by Dr. Elias.. Dr. Kenney has cleared him for discharge blood cultures showing staph epidermidis. White count is down to 7.4. Patient is followed by Dr. Key and is on Zosyn. Objective - Vital Signs Vital signs: Vital Signs Temp 98.4 F 09/26/16 07:00 Pulse 60 09/26/16 08:00 Resp 16 09/26/16 08:00 BP 130/71 09/26/16 07:00 Pulse Ox 96 09/26/16 07:00 Intake & Output 09/25/16 09/26/16 09/26/16 18:59 06:59 18:59 Intake Total 2089 Balance 2089 Weight 83.915 kg 83.915 kg 83.915 kg Intake: Intake, IV Titration 1250 Amount Piperacillin-Tazobactam 3 100 .375 gm In Dextrose/Water 1 50ml.bag @ 12.5 mls/hr IVPB Q8HR [facility] Rx#: [id number] Sodium Chloride 0.9% 1, 900 000 ml @ 120 mls/hr IV . Q8H20M [facility] Rx#:[id number] Vancomycin 1,250 mg In 250 Sodium Chloride 0.9% 250 ml @ 125 mls/hr IVPB Q8H [facility] Rx#:[id number] Oral 840 Other: Voiding Method Toilet Toilet Toilet # Voids 2 1 1 - Exam General appearance: Present: average body habitus, cooperative, no acute distress - EENT Eyes: Present: anicteric sclerae, EOMI, PERRLA, dentition normal, normal appearance ENT: Present: hearing grossly normal, NA/AT, normal oropharynx - Neck Neck: Present: normal ROM - Respiratory Respiratory: bilateral: CTA, negative: diminished, dullness, rales - Cardiovascular Heart sounds: normal: S1, S2 Abnormal Heart Sounds: Absent: systolic murmur, diastolic murmur, rub, S3 Gallop , S4 Gallop, click, other - Gastrointestinal General gastrointestinal: Present: normal bowel sounds, soft - Integumentary Integumentary: Present: normal, normal turgor - Neurologic Neurologic: Present: CNII-XII intact - Musculoskeletal Musculoskeletal: Present: gait normal, strength equal bilaterally - Psychiatric Psychiatric: Present: A&O x's 3, appropriate affect, intact judgment & insight - Labs CBC & Chem 7: 09/26/16 07:34 09/26/16 07:34 Labs: Abnormal Lab Results - Last 24 Hours (Table) 09/26/16 Range/Units 07:34 BUN 5 L (9-20) mg/dL Microbiology - Last 24 Hours (Table) 09/23/16 17:55 Blood Culture Gram Stain - Final Blood Blood Culture - Final Staphylococcus epidermidis 09/23/16 19:50 Gram Stain - Final Groin Wound Culture - Final 09/24/16 11:10 Gram Stain - Preliminary Perineal Fluid Wound Culture - Preliminary Assessment and Plan Plan: 1. Perineal abscess with no prior history of drug resistance or Crohn's disease , I&D performed on 09/23/2016 currently receiving IV antibiotics Zosyn, concerning for anorectal-cutaneous fistula cannot be ruled out, patient has similar problems in the past however this has been dormant for the past 2 years. Consult was made with Dr. Key infectious disease and Dr. Elias for general surgery 2. Sepsis with SIRS secondary to the above abscess, patient's on IV antibiotics , protect hemodynamics with IV fluids, monitor for leukocytosis 3. Hypertension currently stable and hydrated diarrheal and Cozaar, 4. Tobacco use, patient is not interested at nicotine patches at this time 5. Mild protein malnutrition preferentially a high protein intake was adviced 6. Family history off Crohn's disease on the mother patient was informed regarding workup also for other inflammatory bowel diseases 7. Bacteremia Coag-negative gram-positive organism, most likely contamination, await formal cultures. If blood cultures are requested continue Zosyn and vancomycin consult with Dr. Key DVT prophylaxis GI prophylaxis Discharge plan: Return home Impression and plan of care have been directed as dictated by the signing physician. Dorita Cochran nurse practitioner acting as scribe for signing physician.
[2016-09-26] MEDS: HYDROcodone/APAP 5-325MG 1 EACH TAB PO PRN ×2 (15:51→23:22)
--- NOTE | 2016-09-26 17:32 | P.PN ---
Progress Note - Text The patient states he feels better. He has less swelling and drainage. He has less pain over his perineum. On exam his vital signs appear stable. There is significantly decreased induration and swelling of the perineal area. Perineal abscess she'll continue receive IV antibiotics. Hopefully discharge home next 24-48 hours.
[2016-09-27] MEDS: PIPERACILLIN-TAZOBACTAM 3.375 GM in DEXTROSE/WATER 1 50ML.BAG IVPB SCH ×2 (00:17→07:26)
[2016-09-27] MEDS: SODIUM CHLORIDE 0.9% 1,000 ML IV SCH ×3 (06:33→11:29)
--- NOTE | 2016-09-27 07:22 | P.PN ---
Progress Note - Text The patient is afebrile. He has minimal drainage from his perineal abscess site and there is decreased induration surrounding it. Patient will be discharged today. His will pack the abscess cavity with iodoform gauze twice a day. He will be treated with Bactrim DS 1 twice a day for an additional 5 days. He should see Dr. Elias sometime next week for follow-up.
[2016-09-27] MEDS: ENOXAPARIN 40 MG/0.4 ML SYRINGE SQ SCH (07:26)
[2016-09-27] MEDS: FAMOTIDINE 20 MG TAB PO SCH (07:28)
[2016-09-27] MEDS: HYDROCHLOROTHIAZIDE 12.5 MG CAP PO SCH (07:28)
[2016-09-27] MEDS: LOSARTAN 50 MG TAB PO SCH (07:28)
[2016-09-27 08:20] VITALS: BP 126/71; PULSE 59; RESP 18; TEMP 97.7
[2016-09-27 08:43] LABS: Basophils # (A) 0.1 k/uL (0-0.2); Basophils % (A) 1 %; CHCM 33.5; Eosinophils # (A) 0.4 k/uL (0-0.7); Eosinophils % (A) 6 %; HCT 41.5 % (39.0-53.0); HDW 2.65; Luc # (Auto) 0.19; Luc % (Auto) 3; Lymphocytes # (A) 1.3 k/uL (1.0-4.8); Lymphocytes % (A) 21 %; MCH 32.5 pg (25.0-35.0); MCHC 33.8 g/dL (31.0-37.0); Mean Platelet Volume 7.7; Monocytes # (A) 0.5 k/uL (0-1.0); Monocytes % (A) 7 %; Neutrophils % (A) 62 %; RBC 4.32 m/uL (4.30-5.90); RDW 13.9 % (11.5-15.5); WBC 6.4 k/uL (3.8-10.6); WBC (Perox) 6.16
--- NOTE | 2016-09-27 09:59 | PN ---
DATE OF SERVICE: 09/26/2016 Reason for followup is perirectal abscess. INTERVAL HISTORY: The patient is afebrile, overall pain and swelling to the perirectal area is currently controlled. Patient denies any significant chest pain, shortness of breath or cough, no abdominal pain. On examination, blood pressure 115/72 with a pulse of 60, temperature is 98, he is 92% on room air. General description is a middle-aged male lying in bed, in no distress. RESPIRATORY SYSTEM: Unlabored breathing, clear to auscultation. HEART: S1, S2, regular rate and rhythm. ABDOMEN: Soft, no tenderness. Perirectal area has an area of induration and minimal drainage. Hemoglobin is 13, white count of 7.6 with a BUN of 5, creatinine 0.89. Consults so far pending. DIAGNOSTIC IMPRESSION AND PLAN: 1. Patient with a perirectal abscess, status post drainage. Covered with Zosyn while waiting for the cultures to finalize on antibiotics. 2. Possible blood culture with Staphylococcus epidermidis, likely skin contamination. No need for further workup for the same thing. [facility]
--- NOTE | 2016-09-27 15:02 | P.PN ---
Subjective This is a 55-year-old pleasant gentleman patient of Dr. Domingo Carmen. He has underlying history of hypertension, and tobacco use admitted through emergency room secondary to 3 days swelling pain and discharged on the perineal area, patient has similar episodes 2 years ago however this admission is severely worse as this has continued to drain with increasing swelling and redness, patient noted that he has some fever and chills, and nausea. He was subsequently seen in the emergency room after he stated that this has drained up proximal mid 2 cups of yellowish bloody fluid prior to admission with foul- smelling odor. 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 When he was seen, temperature was 100.6, WBC of 22.5, lactic acid was 1.6, CAT scan of the abdomen and pelvis using IV contrast show abscess anterior to the anus and posterior to the scrotum and bulbous urethra. He denies any prior surgery to this area patient denies any drug resistance organism in the past. Patient was started on IV Zosyn cultures have been sent from the emergency room. 09/25: Patient is significant better, patient's blood cultures growing coag- negative staph, other cultures are currently pending, patient remains to be afebrile, leukocytosis has improved, she has normal bowel movements and no fecaloid material from urine 09/26: Patient states he continues to have a hard area at the site of the abscess but nothing can be expressed from the site. He is status post I&D done by Dr. Elias.. Dr. Kenney has cleared him for discharge blood cultures showing staph epidermidis. White count is down to 7.4. Patient is followed by Dr. Key and is on Zosyn. 09/27: Patient has been discharged by Dr. wood with plan for Bactrim at home. Patient denies any new complaints today. He has been afebrile. Objective - Vital Signs Vital signs: Vital Signs Temp 97.7 F 09/27/16 07:00 Pulse 59 L 09/27/16 08:00 Resp 18 09/27/16 08:00 BP 126/71 09/27/16 07:00 Pulse Ox 95 09/27/16 07:00 Intake & Output 09/26/16 09/27/16 09/27/16 18:59 06:59 18:59 Intake Total 1690 1250 Balance 1690 1250 Weight 83.915 kg Intake: Intake, IV Titration 890 1010 Amount Piperacillin-Tazobactam 3 50 50 .375 gm In Dextrose/Water 1 50ml.bag @ 12.5 mls/hr IVPB Q8HR [facility] Rx#: [id number] Sodium Chloride 0.9% 1, 840 960 000 ml @ 120 mls/hr IV . Q8H20M [facility] Rx#:[id number] Oral 800 240 Other: Voiding Method Toilet Toilet Toilet # Voids 4 3 - Exam General appearance: Present: average body habitus, cooperative, no acute distress - EENT Eyes: Present: anicteric sclerae, EOMI, PERRLA, dentition normal, normal appearance ENT: Present: hearing grossly normal, NA/AT, normal oropharynx - Neck Neck: Present: normal ROM - Respiratory Respiratory: bilateral: CTA, negative: diminished, dullness, rales - Cardiovascular Heart sounds: normal: S1, S2 Abnormal Heart Sounds: Absent: systolic murmur, diastolic murmur, rub, S3 Gallop , S4 Gallop, click, other - Gastrointestinal General gastrointestinal: Present: normal bowel sounds, soft - Integumentary Integumentary: Present: normal, normal turgor - Neurologic Neurologic: Present: CNII-XII intact - Musculoskeletal Musculoskeletal: Present: gait normal, strength equal bilaterally - Psychiatric Psychiatric: Present: A&O x's 3, appropriate affect, intact judgment & insight - Labs CBC & Chem 7: 09/27/16 08:04 09/26/16 07:34 Labs: Microbiology - Last 24 Hours (Table) 09/23/16 17:55 Blood Culture Gram Stain - Final Blood Blood Culture - Final Staphylococcus epidermidis Assessment and Plan Plan: 1. Perineal abscess with no prior history of drug resistance or Crohn's disease , I&D performed on 09/23/2016 currently receiving IV antibiotics Zosyn, concerning for anorectal-cutaneous fistula cannot be ruled out, patient has similar problems in the past however this has been dormant for the past 2 years. Consult was made with Dr. Key infectious disease and Dr. Elias for general surgery 2. Sepsis with SIRS secondary to the above abscess, patient's on IV antibiotics , protect hemodynamics with IV fluids, monitor for leukocytosis 3. Hypertension currently stable and hydrated diarrheal and Cozaar, 4. Tobacco use, patient is not interested at nicotine patches at this time 5. Mild protein malnutrition preferentially a high protein intake was adviced 6. Family history off Crohn's disease on the mother patient was informed regarding workup also for other inflammatory bowel diseases 7. Bacteremia ruled out as this was contamination. consult with Dr. Key DVT prophylaxis GI prophylaxis Discharge plan: Return home Impression and plan of care have been directed as dictated by the signing physician. Dorita Cochran nurse practitioner acting as scribe for signing physician.
--- NOTE | 2016-09-27 18:29 | PN ---
DATE OF SERVICE: 09/27/16 REASON FOR FOLLOW UP: Perirectal abscess. INTERVAL HISTORY: The patient is afebrile. The is breathing comfortable. Overall pain and swelling to the perirectal area has improved. The patient denies significant chest pain, shortness of breath, cough, abdominal pain or any diarrhea. On examination, blood pressure 126/71, pulse 59, temperature 97.7, he is 95% on room air. General description is a middle age male lying in the bed, in no distress. Respiratory: Unlabored breathing. Clear to auscultation anteriorly. Heart: S1, S2 regular rate and rhythm. Abdomen soft, no tenderness. The perirectal area, swelling and induration has improved. Very minimal drainage was noticed. Labs: Wound cultures so far pending. DIAGNOSTIC IMPRESSION AND PLAN: 1. Patient with perirectal abscess status post drainage. Cultures still pending. The patient did overall show improvement with Zosyn. In view of the location will need to cover for gram negative, both aerobes, and anaerobes, hence antibiotic on discharge will be Augmentin with close outpatient followup. Continue with aquacel silver packing of the wound. Script was sent to his pharmacy. 2. Continue supportive care. YUNIEL
--- NOTE | 2016-11-18 11:25 | P.DS ---
Providers Date of admission: 09/23/16 20:28 Expected date of discharge: 09/27/16 Attending physician: Ben Kenney Consults: 09/23/16 19:46 Consult Physician Routine Consulting Provider: Shirley Asencio Consult Reason/Comments: Perineal abscess Do you want consulting provider notified?: Yes Consult Physician Routine Consulting Provider: Ramiro Key Consult Reason/Comments: Perineal abscess Do you want consulting provider notified?: Already Contacted 09/23/16 21:39 Consult Physician Routine Consulting Provider: Solitario Elias Consult Reason/Comments: perianal abscess Do you want consulting provider notified?: Yes Primary care physician: Omkar Carmen - Discharge Diagnosis(es) (1) Abscess of perineum Status: Acute Hospital Course: Patient is a 55-year-old male who developed progressive pain and swelling in the perineal region and in 3 or 4 days prior to admission. Patient was noted to have a fever and a white blood count of 16,700 when he was evaluated in the emergency room. Computed tomography scan performed in the emergency room identified an abscess in the perineal region. There was no urethral or deep pelvic abnormality present. The patient was started on Zosyn and admitted for further evaluation. He was seen by me and his perineal abscess was incised and drained at the bedside on 09/24. Packing was placed in the abscess cavity. The patient improved clinically although he continued to have some drainage from the abscess. Blood cultures eventually grew staph epidermidis. Culture from the perineal fluid grew Peptostreptococcus. The patient became afebrile following drainage of the abscess and his white blood count normalized. The patient was discharged on 09/27 at which time he was afebrile and had only minimal drainage from the abscess site. Patient Condition at Discharge: Stable Plan - Discharge Summary New Discharge Prescriptions: New Sulfamethox-Tmp 800-160Mg [Bactrim DS 800-160 mg] 1 tab PO Q12HR #10 tab Amoxic-Pot Clav 875-125Mg [Augmentin 875-125] 1 tab PO Q12HR #20 tablet No Action Losartan/Hydrochlorothiazide [Losartan-Hctz 100-12.5 mg Tab] 1 tab PO DAILY Acetaminophen Tab [Tylenol Tab] 325 - 650 mg PO Q6H PRN PRN Reason: Pain Discharge Medication List Acetaminophen Tab [Tylenol Tab] 325 - 650 mg PO Q6H PRN 09/23/16 [History] Losartan/Hydrochlorothiazide [Losartan-Hctz 100-12.5 mg Tab] 1 tab PO DAILY [History] Amoxic-Pot Clav 875-125Mg [Augmentin 875-125] 1 tab PO Q12HR #20 tablet [Rx] Sulfamethox-Tmp 800-160Mg [Bactrim DS 800-160 mg] 1 tab PO Q12HR #10 tab [Rx] Follow up Appointment(s)/Referral(s): Ramiro Key MD [STAFF PHYSICIAN] - 1 Week Omkar Carmen MD [Primary Care Provider] - 09/29/16 1:15 pm Solitario Elias MD [STAFF PHYSICIAN] - 10/04/16 2:30 pm (Bring ID, Insurance Card, and list of medications with to your appointment.) Patient Instructions/Handouts: Sulfamethoxazole/Trimethoprim (By mouth), Sepsis (GEN), Abscess (GEN) Activity/Diet/Wound Care/Special Instructions: The patient's will be instructed in how to pack his abscess cavity with iodoform gauze. This should be done twice a day until the cavity is too small for any packing. The patient may shower. Discharge Disposition: HOME SELF-CARE
== END 2016-09-27 12:25 | disposition home or self-care (01) | DRG 580 ==
LOC: EC 16:05 → 5MS5E 20:28
PROVIDERS: ADMIT Urology; ATTEND Urology
PROC: 0H99XZZ Drainage of Perineum Skin, External Approach (ICD-10-PCS; principal; 2016-09-24)
DX: L02.215 Cutaneous abscess of perineum (principal); E44.1 Mild protein-calorie malnutrition; I10 Essential (primary) hypertension; E65 Localized adiposity; F17.200 Nicotine dependence, unspecified, uncomplicated; Z79.899 Other long term (current) drug therapy; Z82.49 Family history of ischemic heart disease and other diseases of the circulatory system
CPT/HCPCS: 36415; 74177; 80048; 80053; 80202; 81001; 83036; 83605; 85025; 87040; 87070; 87075; 87077; 87086; 87186; 87205; 93005; 96361; 96365; 96375; 96376; 99285

== ENCOUNTER → 2016-10-17 | Outpatient (CLI) | payer OTHER ==
[2016-10-17 12:17] LABS: CH 32.5; CHCM 34.1; HCT 49.1 % (39.0-53.0); HDW 2.64; HGB 16.2 gm/dL (13.0-17.5); MCH 31.7 pg (25.0-35.0); MCHC 33.1 g/dL (31.0-37.0); MCV 95.7 fL (80.0-100.0); Mean Platelet Volume 7.5; RBC 5.13 m/uL (4.30-5.90); RDW 14.1 % (11.5-15.5); WBC 7.3 k/uL (3.8-10.6)
[2016-10-17 12:23] LABS: ALT 42 U/L (21-72); AST 23 U/L (17-59); Alkaline Phosphatase 88 U/L (38-126); Anion Gap 11 mmol/L; Blood Urea Nitrogen 14 mg/dL (9-20); Calcium 9.7 mg/dL (8.4-10.2); Carbon Dioxide 26 mmol/L (22-30); Chloride 105 mmol/L (98-107); Cholesterol 206 mg/dL (<200); Glucose 100 mg/dL (74-99); HDL Cholesterol 65 mg/dL (40-60); Non-African American GFR(MDRD) >60 (>60 ml/min/1.73 sqM); Potassium 4.5 mmol/L (3.5-5.1); Sodium 142 mmol/L (137-145); Total Bilirubin 0.6 mg/dL (0.2-1.3)
[2016-10-17 15:18] LABS: Hemoglobin A1C 5.5 % (4.2-6.1)
== END | disposition home or self-care (01) ==
LOC: LABWHC1 11:13
PROVIDERS: ATTEND Family Medicine
DX: R73.9 Hyperglycemia, unspecified (principal)
CPT/HCPCS: 36415; 80053; 80061; 83036; 84153; 85027

== ENCOUNTER → 2017-09-23 | Outpatient (CLI) | payer OTHER ==
[2017-09-23 11:03] LABS: HCT 45.8 % (39.0-53.0); HGB 15.5 gm/dL (13.0-17.5); MCH 30.4 pg (25.0-35.0); MCHC 33.8 g/dL (31.0-37.0); MCV 89.9 fL (80.0-100.0); Mean Platelet Volume 6.9; Platelet Count 378 k/uL (150-450); RBC 5.09 m/uL (4.30-5.90); RDW 13.2 % (11.5-15.5)
[2017-09-23 11:12] LABS: ALT 105 U/L (21-72); AST 47 U/L (17-59); Albumin 4.4 g/dL (3.5-5.0); Alkaline Phosphatase 87 U/L (38-126); Anion Gap 8 mmol/L; Blood Urea Nitrogen 10 mg/dL (9-20); Calcium 9.7 mg/dL (8.4-10.2); Carbon Dioxide 28 mmol/L (22-30); Chloride 101 mmol/L (98-107); Glucose 103 mg/dL (74-99); Potassium 4.2 mmol/L (3.5-5.1); Sodium 137 mmol/L (137-145); Total Bilirubin 0.7 mg/dL (0.2-1.3)
== END | disposition home or self-care (01) ==
LOC: LABWHC1 10:44
PROVIDERS: ATTEND Family Medicine
DX: Z01.812 Encounter for preprocedural laboratory examination (principal); S82.892A Other fracture of left lower leg, initial encounter for closed fracture; I10 Essential (primary) hypertension
CPT/HCPCS: 36415; 80053; 85027; 85610; 85730

== ENCOUNTER → 2017-11-17 | Outpatient (CLI) | payer OTHER ==
[2017-11-17 10:30] LABS: HCT 46.1 % (39.0-53.0); HGB 15.4 gm/dL (13.0-17.5); MCH 30.7 pg (25.0-35.0); MCHC 33.4 g/dL (31.0-37.0); Mean Platelet Volume 6.8; Platelet Count 326 k/uL (150-450); RBC 5.01 m/uL (4.30-5.90); WBC 6.1 k/uL (3.8-10.6)
[2017-11-17 10:49] LABS: Albumin 4.6 g/dL (3.5-5.0); Calcium 10.3 mg/dL (8.4-10.2); Potassium 4.3 mmol/L (3.5-5.1); Total Bilirubin 0.7 mg/dL (0.2-1.3); Total Protein 7.6 g/dL (6.3-8.2)
[2017-11-17 11:19] LABS: Prostate Specific Antigen 1.78 ng/mL (0.00-4.00)
== END ==
LOC: LABWHC1 09:49
PROVIDERS: ATTEND Family Medicine
DX: I10 Essential (primary) hypertension (principal); E78.00 Pure hypercholesterolemia, unspecified; R73.01 Impaired fasting glucose; R35.1 Nocturia
CPT/HCPCS: 36415; 80053; 80061; 83036; 84153; 84443; 85027